=== PATIENT | male | born 2000 | race Caucasian/White ===

== ENCOUNTER 2021-10-22 06:50 | Emergency (ER) | payer OTHER ==
[~2021-10-22 06:50] MED LIST: BACTROBAN OINT22 GM EXT; IBUPROFEN600 MG PO; KEFLEX CAP 500500 MG PO; NORCO 5-325 TA1 EACH PO
[2021-10-22] MEDS ORDERED: IBUPROFEN600 MG PO (09:52)
== END 2021-10-22 10:44 | disposition left against medical advice (07) ==
LOC: ER1 06:50
DX: H53.8 Other visual disturbances (principal); R51.9 Headache, unspecified; F17.200 Nicotine dependence, unspecified, uncomplicated
CPT/HCPCS: 70450; 82962; 99283; Q9967